=== PATIENT | male | born 1950 | race Caucasian/White ===

== ENCOUNTER 2023-05-18 10:07 | Outpatient (CLI) | payer BC ==
[2023-05-18 10:47] LABS: Hematocrit 45.4 % (38.8-50.0); Mean Corpuscular Hemoglobin 32.3 pg (27.0-33.0); Mean Corpuscular Volume 97.8 fl (81.2-95.1); Mean Platelet Volume 9.3 fl (7.4-10.4); Platelet Count 284 10x3/uL (150-450); RBC Distribution Width 13.1 % (11.5-14.5); Red Blood Cell (RBC) Count 4.64 10x6/uL (4.32-5.72)
[2023-05-18 11:32] LABS: Anion Gap 12 mmol/L (10-20); BUN (Urea Nitrogen) 13 mg/dL (8.4-25.7); Calc. Creatinine Clearance 0 mL/min (70-130); Calcium 10.4 mg/dL (7.8-10.44); Carbon Dioxide 26 mmol/L (23-31); Chloride 104 mmol/L (98-107); Estimated GFR 92; Glucose 94 mg/dL (83-110); Potassium 4.3 mmol/L (3.5-5.1); Sodium 138 mmol/L (136-145)
== END 2023-05-18 10:08 | disposition home or self-care (01) ==
LOC: CSHLAB 10:07
PROVIDERS: ATTEND Otolaryngology Otolaryngic Allergy
DX: Z01.812 Encounter for preprocedural laboratory examination (principal); J30.9 Allergic rhinitis, unspecified; H69.83 Other specified disorders of Eustachian tube, bilateral; C44.311 Basal cell carcinoma of skin of nose
CPT/HCPCS: 80048; 85027

== ENCOUNTER 2023-06-15 08:32 | Outpatient (CLI) | payer BC ==
[2023-06-15 09:29] LABS: Hematocrit 41.9 % (38.8-50.0); Hemoglobin 13.8 g/dL (13.5-17.5)
[2023-06-15 09:57] LABS: Anion Gap 13 mmol/L (10-20); BUN (Urea Nitrogen) 14 mg/dL (8.4-25.7); Calc. Creatinine Clearance 0 mL/min (70-130); Calcium 10.5 mg/dL (7.8-10.44); Carbon Dioxide 25 mmol/L (23-31); Chloride 107 mmol/L (98-107); Estimated GFR 91; Glucose 104 mg/dL (83-110); Potassium 4.4 mmol/L (3.5-5.1); Sodium 141 mmol/L (136-145)
== END 2023-06-15 08:33 | disposition home or self-care (01) ==
LOC: CSHLAB 08:32
PROVIDERS: ATTEND Otolaryngology Otolaryngic Allergy
DX: Z01.812 Encounter for preprocedural laboratory examination (principal); C44.92 Squamous cell carcinoma of skin, unspecified
CPT/HCPCS: 80048; 85014; 85018

== ENCOUNTER 2023-06-20 05:48 | Day surgery (SDC) | payer BC ==
[2023-06-15 08:58] VITALS: BMI 28.0
[2023-06-20] MEDS ORDERED: CEFAZOLIN 2 GM VIAL ONE (06:34)
[2023-06-20] MEDS ORDERED: Lidocaine 1% w/Epinephrine 1:100K 20 ML VIAL ONE (06:34)
[2023-06-20] MEDS ORDERED: Ondansetron PF 4 MG/2 ML Vial ONE (06:48)
[2023-06-20] MEDS ORDERED: PROPOFOL 20 ML ONE (06:48)
[2023-06-20] MEDS ORDERED: fentaNYL 50 mcg/mL 1 mL Vial ONE ×2 (06:48→08:14)
[2023-06-20] MEDS ORDERED: Lidocaine 1% PF 5 ML VIAL ONE (06:48)
[2023-06-20] MEDS ORDERED: Dexamethasone 4 mg/ml Vial ONE (06:48)
[2023-06-20] MEDS ORDERED: MINERAL OIL/WHITE PETROLATUM 3.5 GM TUBE ONE (07:14)
[2023-06-20] MEDS ORDERED: PHENYLEPHRINE-NS 100 MCG/ML 10 ML SYRINGE ONE (07:41)
[2023-06-20] MEDS ORDERED: Mupirocin 2% Ointment 22 GM Tube ONE (08:40)
[2023-06-20] MEDS ORDERED: ePHEDrine Sulfate 50 MG/10 ML VIAL ONE (09:16)
== END 2023-06-20 11:00 | disposition home or self-care (01) ==
LOC: CSHSDC 05:48
PROVIDERS: ATTEND Otolaryngology Otolaryngic Allergy
PROC: 0HX1XZZ Transfer Face Skin, External Approach (ICD-10-PCS; principal; 2023-06-20)
DX: C44.321 Squamous cell carcinoma of skin of nose (principal); S01.20XA Unspecified open wound of nose, initial encounter; L90.5 Scar conditions and fibrosis of skin; L98.499 Non-pressure chronic ulcer of skin of other sites with unspecified severity; I25.10 Atherosclerotic heart disease of native coronary artery without angina pectoris; I48.91 Unspecified atrial fibrillation; E78.5 Hyperlipidemia, unspecified; Z79.82 Long term (current) use of aspirin; Z79.899 Other long term (current) drug therapy; X58.XXXA Exposure to other specified factors, initial encounter
CPT/HCPCS: 88305; 88331; J1100; J2405; J2704; J3010